=== PATIENT | male | born 2000 | race African-American/Black ===

== ENCOUNTER 2019-04-12 00:02 | Emergency (ER) | payer SELFPAY ==
[~2019-04-12] VITALS: Ht 172.7 cm; Wt 61.2 kg
[~2019-04-12 00:02] MED LIST: AMOX500T PO; FAMO-63 PO; PRED20TA PO
[2019-04-12 01:06] VITALS: BP 142/79
[2019-04-12] MEDS ORDERED: DIPHTH,PERTUSS(ACELL),TET TOX 0.5 ML DISP.SYRIN. VAX IM ONE ×2 (01:47→02:30)
[2019-04-12] MEDS ORDERED: LIDOCAINE 2% 20 ML VIAL. IJ ONE (02:00)
--- NOTE | 2019-04-12 03:17 | PHYS DOC ---
Past Medical History Past Medical History: Asthma Past Surgical History: No Surgical History Alcohol Use: Rarely Drug Use: None Adult General Chief Complaint Chief Complaint: ANKLE PROBLEM HPI HPI Patient is a 19 year old jumped off a sort of retaining wall and sustained a laceration to his left posterior ankle with a brick. Moderate bleeding unknown tetanus no numbness moderate to severe pain Review of Systems Review of Systems Constitutional: Denies fever or chills [] Eyes: Denies change in visual acuity, redness, or eye pain [] HENT: Denies nasal congestion or sore throat [] Respiratory: Denies cough or shortness of breath [] Cardiovascular: No additional information not addressed in HPI [] GI: Denies abdominal pain, nausea, vomiting, bloody stools or diarrhea [] Neurologic: Denies headache, focal weakness or sensory changes [] All other systems were reviewed and found to be within normal limits, except as documented in this note. No other injury Current Medications Current Medications Current Medications Medications (Trade) Dose Ordered Sig/Earl Start Time Stop Time Status Last Admin Dose Admin Acetaminophen/ Hydrocodone Bitart (Lortab 5/325) 2 tab 1X ONCE 04/12/19 03:30 04/12/19 03:31 Diphtheria/ Tetanus/Acell Pertussis (Boostrix) 0.5 ml ONCE ONCE 04/12/19 02:30 04/12/19 02:31 DC 04/12/19 02:07 0.5 ML Lidocaine HCl 20 ml 1X ONCE 04/12/19 02:00 04/12/19 02:01 DC 04/12/19 02:06 20 ML Allergies Allergies Allergies Coded Allergies Type Severity Reaction Last Updated Verified No Known Drug Allergies 06/11/16 No Physical Exam Physical Exam Constitutional: Well developed, well nourished, no acute distress, non-toxic appearance. [] HENT: Normocephalic, atraumatic, bilateral external ears normal, oropharynx moist, no oral exudates, nose normal. [] Eyes: PERRLA, EOMI, conjunctiva normal, no discharge. [] Neck: Normal range of motion, no tenderness, supple, no stridor. [] Pulmonary: Normal respiratory effort no increased work of breathing no obvious chest wall trauma Skin: 6 cm laceration to the posterior ankle. Deep to subcutaneous tissue that he Achilles tendon is not involved. Under direct visualization there is no injury to the Achilles tendon patient has intact function of that on exam Back: No tenderness, no CVA tenderness. [] Extremities: See above Neurologic: Alert and oriented X 3, normal motor function, normal sensory function, no focal deficits noted. [] Psychologic: Affect normal, judgement normal, mood normal. [] Current Patient Data Vital Signs Vital Signs Date Time Temp Pulse Resp B/P (MAP) Pulse Ox O2 Delivery O2 Flow Rate FiO2 04/12/19 01:06 98.6 102 16 142/79 (100) 100 Room Air 98.6 EKG EKG [] Radiology/Procedures Radiology/Procedures [] Impressions: My read x-ray no fracture Course & Med Decision Making Course & Med Decision Making Pertinent Labs and Imaging studies reviewed. (See chart for details) []Ankle laceration repair note: Verbal consent was obtained 6 cm laceration area prepped and draped usual sterile fashion and irrigated profusely lidocaine subcutaneous was used for anesthesia and no foreign body was identified closed with 3-0 nylon simple interrupted total of 10 sutures excellent skin approximation patient tolerated well splint was applied for protection of the sutures crutches were given. Tetanus was updated return precautions discussed wound care instructions given Dragon Disclaimer Dragon Disclaimer This electronic medical record was generated, in whole or in part, using a voice recognition dictation system. Departure Departure Impression: Primary Impression: Laceration Disposition: 01 HOME, SELF-CARE Condition: STABLE Patient Instructions: Laceration Care, Adult, [id number] TRA LOWE MD Apr 12, 2019 03:17
[2019-04-12] MEDS ORDERED: HYDROcodone/APAP 5/325MG 1 TAB TABLET PO ONE (03:30)
--- NOTE | 2019-04-12 04:19 | RAD ---
EXAM: AP, oblique and lateral views of the left ankle DATE: 04/12/2019 1:28 AM INDICATION: Trauma, ankle pain COMPARISON: No Prior FINDINGS/ IMPRESSION: Soft tissue gas is seen along the lateral and dorsal aspect of the left ankle. This is particularly prominent over kager fat pad. No evidence of acute fracture or dislocation. Joint spaces are preserved without significant degenerative/proliferative change. Electronically signed by: Venkat Rodríguez MD (04/12/2019 4:17 AM) [facility]
== END 2019-04-12 03:48 | disposition home or self-care (01) ==
LOC: ER 00:02
DX: S91.012A Laceration without foreign body, left ankle, initial encounter (principal); J45.909 Unspecified asthma, uncomplicated; W22.8XXA Striking against or struck by other objects, initial encounter; Y93.39 Activity, other involving climbing, rappelling and jumping off; Y92.89 Other specified places as the place of occurrence of the external cause; Y99.8 Other external cause status
CPT/HCPCS: 12002; 73610; 90471; 90715; 99284; J2001

== ENCOUNTER 2019-04-14 08:15 | Emergency (ER) | payer SELFPAY ==
[~2019-04-14] VITALS: Ht 182.9 cm; Wt 61.2 kg
--- NOTE | 2019-04-14 08:50 | PHYS DOC ---
Past Medical History Past Medical History: Asthma Past Surgical History: No Surgical History Alcohol Use: Rarely Drug Use: None Adult General Chief Complaint Chief Complaint: OTHER COMPLAINTS [facility] Patient is a 19 year old male who presents with laceration repair to left posterior ankle on April [address] Cedillo. A splint was placed to protect the laceration. Patient here today to have splint readjusted due to it moving when he states he accidently it on a wall when he was ambulating at home. Review of Systems Review of Systems Constitutional: Denies fever or chills [] Eyes: Denies change in visual acuity, redness, or eye pain [] HENT: Denies nasal congestion or sore throat [] Respiratory: Denies cough or shortness of breath [] Cardiovascular: No additional information not addressed in HPI [] GI: Denies abdominal pain, nausea, vomiting, bloody stools or diarrhea [] : Denies dysuria or hematuria [] Musculoskeletal: Posterior ankle splint readjustment .Denies back pain or joint pain [] Integument: Denies rash or skin lesions [] Neurologic: Denies headache, focal weakness or sensory changes [] Endocrine: Denies polyuria or polydipsia [] All other systems were reviewed and found to be within normal limits, except as documented in this note. Allergies Allergies Allergies Coded Allergies Type Severity Reaction Last Updated Verified No Known Drug Allergies 06/11/16 No Physical Exam Physical Exam Constitutional: Well developed, well nourished, no acute distress, non-toxic appearance. [] HENT: Normocephalic, atraumatic, bilateral external ears normal, oropharynx moist, no oral exudates, nose normal. [] Eyes: PERRLA, EOMI, conjunctiva normal, no discharge. [] Neck: Normal range of motion, no tenderness, supple, no stridor. [] Cardiovascular:Heart rate regular rhythm, no murmur [] Lungs & Thorax: Bilateral breath sounds clear to auscultation [] Abdomen: Bowel sounds normal, soft, no tenderness, no masses, no pulsatile masses. [] Skin: Sutures intact. Warm, dry, no erythema, no rash. [] Back: No tenderness, no CVA tenderness. [] Extremities: No tenderness, no cyanosis, no clubbing, ROM intact, no edema. [] Neurologic: Alert and oriented X 3, normal motor function, normal sensory function, no focal deficits noted. [] Psychologic: Affect normal, judgement normal, mood normal. [] Current Patient Data Vital Signs Vital Signs Date Time Temp Pulse Resp B/P (MAP) Pulse Ox O2 Delivery O2 Flow Rate FiO2 04/14/19 08:24 98.4 97 18 156/78 (104) 100 Room Air 98.4 EKG EKG [] Radiology/Procedures Radiology/Procedures [] Course & Med Decision Making Course & Med Decision Making Patient is a 19 year old male who presents with laceration repair to left posterior ankle on April [address] Cedillo. A splint was placed to protect the laceration. Patient here today to have splint readjusted due to it moving when he states he accidently it on a stair when he was ambulating at home. Alert and oriented. Ambulatory with crutches. Patient denies any pain, fever. Skin pink, warm, dry. There is no swelling to the extremity. Equal strengths in all extremities. Pedal pulses palpable and strong. Cap refill less than 3 seconds. Laceration sutures are intact laceration has no signs of infection him a redness, drainage or swelling. Laceration is cleaned and redressed. Splint is reapplied and wrapped with blair bandage. Patient tolerated well. Denies any pain. Vital signs wnl. Dragon Disclaimer Dragon Disclaimer This electronic medical record was generated, in whole or in part, using a voice recognition dictation system. Departure Departure Impression: Primary Impression: Encounter for medical screening examination Disposition: HOME, SELF-CARE Condition: STABLE Referrals: NO PCP (PCP) Patient Instructions: Cast or Splint Care, [id number], Laceration Care, Adult, Medical Screening Exam Additional Instructions: Follow up on for suture removal in 10 days. MARTA HO APRN Apr 14, 2019 08:50
== END 2019-04-14 08:56 | disposition home or self-care (01) ==
LOC: ER 08:15
DX: S91.012D Laceration without foreign body, left ankle, subsequent encounter (principal); Z46.89 Encounter for fitting and adjustment of other specified devices; J45.909 Unspecified asthma, uncomplicated; X58.XXXD Exposure to other specified factors, subsequent encounter
CPT/HCPCS: 99282; 99283

== ENCOUNTER 2019-05-01 06:14 | Emergency (ER) | payer SELFPAY ==
[~2019-05-01] VITALS: Ht 167.6 cm; Wt 61.2 kg
[2019-05-01 06:17] VITALS: BP 135/87
[2019-05-01] MEDS ORDERED: CEPH500C PO (06:39)
--- NOTE | 2019-05-01 06:39 | PHYS DOC ---
Past Medical History Past Medical History: No Pertinent History, Asthma Past Surgical History: No Surgical History Alcohol Use: Rarely Drug Use: None Adult General Chief Complaint Chief Complaint: LACERATION/AVULSION [facility] HPI Patient is a 19 year old male presented to the ER to have sutures removed on the wound on left heel area. Patient sustained injury and laceration to left heel area on April 12, he was evaluated in this ER, the wound was sutured, 10 s utures total. Due to the laceration at the heel area, the left ankle was placed in a short leg splint to keep the sutures in place. He was instructed to follow up with his doctor or return here in 5 days to have the splint removed. However, patient did not follow instruction. He did not seek medical attention until today. Patient complains of mild pain in left heel area. He denied any fever, no leg swelling, no chest pain, no shortness of air. Review of Systems Review of Systems Constitutional: Denies fever or chills [] Eyes: Denies change in visual acuity, redness, or eye pain [] HENT: Denies nasal congestion or sore throat [] Respiratory: Denies cough or shortness of breath [] Cardiovascular: No additional information not addressed in HPI [] GI: Denies abdominal pain, nausea, vomiting, bloody stools or diarrhea [] : Denies dysuria or hematuria [] Musculoskeletal: Denies back pain or joint pain [] Integument: Positive for wound in left heel area. Neurologic: Denies headache, focal weakness or sensory changes [] Endocrine: Denies polyuria or polydipsia [] All other systems were reviewed and found to be within normal limits, except as documented in this note. Allergies Allergies Allergies Coded Allergies Type Severity Reaction Last Updated Verified No Known Drug Allergies 06/11/16 No Physical Exam Physical Exam Constitutional: Well developed, well nourished, no acute distress, non-toxic appearance. [] HENT: Normocephalic, atraumatic, bilateral external ears normal, oropharynx mo ist, no oral exudates, nose normal. [] Eyes: PERRLA, EOMI, conjunctiva normal, no discharge. [] Neck: Normal range of motion, no tenderness, supple, no stridor. [] Cardiovascular:Heart rate regular rhythm, no murmur [] Lungs & Thorax: Bilateral breath sounds clear to auscultation [] Skin: Warm, dry, no erythema, no rash. There is nonhealing wound on left heel with sutures in place. Extremities: No tenderness, no cyanosis, no clubbing, ROM intact, no edema. LEFT LEG IN SHORT LEG SPLINT. Neurologic: Alert and oriented X 3, normal motor function, normal sensory function, no focal deficits noted. [] Psychologic: Affect normal, judgement normal, mood normal. [] Current Patient Data Vital Signs Vital Signs Date Time Temp Pulse Resp B/P (MAP) Pulse Ox O2 Delivery O2 Flow Rate FiO2 05/01/19 06:17 98.0 95 20 135/87 (103) 100 Room Air 98.0 EKG EKG [] Radiology/Procedures Radiology/Procedures [] Course & Med Decision Making Course & Med Decision Making Pertinent Labs and Imaging studies reviewed. (See chart for details) The splint was removed, it revealed a wound with sutures in place, some of the sutures already broken. The wound appeared inflamed with superficial necrotic skin along the wound edge, no swelling or induration. The wound is not completely healed DUE TO being covered with splint for too long. No purulent dr brown was expressed. All visible sutures removed, closer examination after the wound was cleaned, no sutures left inside the wound. The wound was cleaned with wound cleansing solution. It was covered with clean gauze. Patient was put on keflex 500 mg po QID FOR 7 DAYS TO PREVENT INFECTION. Patient was instructed to follow up with his family doctor in 2 days for wound rechecked. Dragon Disclaimer Dragon Disclaimer This electronic medical record was generated, in whole or in part, using a voice recognition dictation system. Departure Departure Impression: Primary Impression: Encounter for removal of sutures Additional Impression: Cellulitis Disposition: HOME, SELF-CARE Condition: STABLE Referrals: NO PCP (PCP) follow up with your doctor in 2 days for wound rechecked. Patient Instructions: Cellulitis, [id number], Suture Removal Scripts Cephalexin (CEPHALEXIN) 500 Mg Capsule 1 CAP PO QID for 7 Days, #28 CAP Prov: NELY MOORE DO 05/01/19 Problem Qualifiers NELY MOORE DO May 01, 2019 06:39
== END 2019-05-01 06:53 | disposition home or self-care (01) ==
LOC: ER 06:14
DX: S91.012D Laceration without foreign body, left ankle, subsequent encounter (principal); L03.116 Cellulitis of left lower limb; J45.909 Unspecified asthma, uncomplicated; X58.XXXD Exposure to other specified factors, subsequent encounter
CPT/HCPCS: 99283

== ENCOUNTER 2021-09-11 10:14 | Emergency (ER) | payer SELFPAY ==
[~2021-09-11] VITALS: Ht 172.7 cm; Wt 72.9 kg
[~2021-09-11 10:14] MED LIST changes: +CEPH500C PO
[2021-09-11 10:27] VITALS: BP 176/89
[2021-09-11] MEDS ORDERED: AMOX500C PO (10:51)
--- NOTE | 2021-09-11 10:51 | PHYS DOC ---
Past Medical History Past Medical History: Asthma, Other Past Surgical History: No Surgical History Smoking Status: Current Every Day Smoker Additional Information: 0.5 PPD Alcohol Use: Occasionally Drug Use: None General Adult EDM: Chief Complaint: DENTAL PROBLEM HPI: HPI: Patient is a 21 year old male who presents with 2 days of dental pain and facial swelling. Patient has right lower facial swelling with right lower pain. He states he has a dentist appointment this coming up week. He states he took 1 antibiotic pill that his father had. He states is been taking Tylenol at home. Has a history of smoking and asthma. Review of Systems: Review of Systems: Constitutional: Denies fever or chills. [] Eyes: Denies change in visual acuity. [] HENT: Denies nasal congestion or sore throat. +Dental Abscess[] Respiratory: Denies cough or shortness of breath. [] Cardiovascular: Denies chest pain or edema. [] GI: Denies abdominal pain, nausea, vomiting, bloody stools or diarrhea. [] : Denies dysuria. [] Musculoskeletal: Denies back pain or joint pain. [] Integument: Denies rash. [] Neurologic: Denies headache, focal weakness or sensory changes. [] Endocrine: Denies polyuria or polydipsia. [] Lymphatic: Denies swollen glands. [] Psychiatric: Denies depression or anxiety. [] Heart Score: C/O Chest Pain: No Allergies: Allergies: Allergies Coded Allergies Type Severity Reaction Last Updated Verified No Known Drug Allergies 06/11/16 No Physical Exam: PE: Constitutional: Well developed, well nourished, no acute distress, non-toxic appearance. [] HENT: Normocephalic, atraumatic, bilateral external ears normal, oropharynx moist, no oral exudates, nose normal. Right lower Dental abscess with Dental donnell at tooth #29[] Eyes: PERRLA, EOMI, conjunctiva normal, no discharge. [] Neck: Normal range of motion, no tenderness, supple, no stridor. [] Cardiovascular:Heart rate regular rhythm, no murmur [] Lungs & Thorax: Bilateral breath sounds clear to auscultation [] Abdomen: Bowel sounds normal, soft, no tenderness, no masses, no pulsatile masses. [] Skin: Warm, dry, no erythema, no rash. [] Back: No tenderness, no CVA tenderness. [] Extremities: No tenderness, no cyanosis, no clubbing, ROM intact, no edema. [] Neurologic: Alert and oriented X 3, normal motor function, normal sensory function, no focal deficits noted. [] Psychologic: Affect normal, judgement normal, mood normal. [] Current Patient Data: Vital Signs: Vital Signs Date Time Temp Pulse Resp B/P (MAP) Pulse Ox O2 Delivery O2 Flow Rate FiO2 09/11/21 10:27 98.8 102 16 176/89 (118) 98 Room Air 98.8 EKG: EKG: [] Radiology/Procedures: Radiology/Procedures: [] Course & Med Decision Making: Course & Med Decision Making Pertinent Labs and Imaging studies reviewed. (See chart for details) See HPI. Alert and oriented x4. Ambulatory steady gait. Speaks in full clear sentences. No swelling or tenderness of the tongue. Uvula midline. No trismus. Cannot fully stick his tongue out. Afebrile. Tooth #29 infected with dental caries and has associated right lower facial swelling. Tenderness noted at gumline that is reddened. No drainage. [] Dragon Disclaimer: [employer] Disclaimer: This electronic medical record was generated, in whole or in part, using a voice recognition dictation system. Departure Departure Impression: Primary Impression: Dental abscess Disposition: 01 HOME / SELF CARE / HOMELESS Condition: STABLE Referrals: NO PCP (PCP) Patient Instructions: Dental Abscess Additional Instructions: Follow-up with dentist as scheduled. Take medication as prescribed and with food. Continue taking Tylenol or ibuprofen for your pain. If you begin running a fever or having pain under your tongue and swelling return to the emergency room. Scripts Amoxicillin (AMOXICILLIN) 500 Mg Capsule 1 CAP PO BID, #20 CAP Prov: MARTA HO BASIN CLEANER 09/11/21 MARTA HO BASIN CLEANER Sep 11, 2021 10:51
== END 2021-09-11 10:58 | disposition home or self-care (01) ==
LOC: ER 10:14
DX: K04.7 Periapical abscess without sinus (principal); J45.909 Unspecified asthma, uncomplicated; F17.200 Nicotine dependence, unspecified, uncomplicated
CPT/HCPCS: 99283